=== PATIENT | female | born 1955 | race Caucasian/White ===

== ENCOUNTER 2020-12-23 12:12 | Emergency (ER) | payer SELFPAY ==
[~2020-12-23] VITALS: Ht 180.3 cm; Wt 85.3 kg
[2020-12-23] MEDS ORDERED: ASPIRIN 81 MG CHEW TAB PO ONE (12:45)
[2020-12-23 12:57] LABS: BASOPHILS % 0.4 % (0.0-1.0); EOSINOPHILS % 0.3 % (0.0-6.0); HEMOGLOBIN 13.6 g/dL (12.0-16.0); LYMPHOCYTES # (AUTO) 1.7 (1.0-3.2); LYMPHOCYTES % 21.7 % (18.0-39.1); MEAN CORPUSCULAR HEMOGLOBIN 31.7 pg (28-32); MEAN CORPUSCULAR HGB CONC 33.2 g/dL (31-35); MEAN CORPUSCULAR VOLUME 95.6 fL (81-99); MONOCYTES # (AUTO) 0.6 (0.2-0.8); MONOCYTES % 7.7 % (4.4-11.3); NEUTROPHILS # (AUTO) 5.4 (2.1-6.9); NEUTROPHILS % 69.4 % (38.7-80.0); PLATELET COUNT 203 x10e3/uL (140-360); RED BLOOD COUNT 4.29 x10e6/uL (3.6-5.1); RED CELL DISTRIBUTION WIDTH 13.9 % (11.7-14.4)
[2020-12-23] MEDS ORDERED: ETOMIDATE 2 MG/ML 10 ML INJ IV ONE (12:58)
[2020-12-23] MEDS ORDERED: SUCCINYLCHOLINE CHLORIDE 20 MG/ML 10ML VIAL ONE (12:58)
[2020-12-23 13:05] LABS: INR 1.51; PROTHROMBIN TIME 18.8 seconds (11.9-14.5)
[2020-12-23 13:11] LABS: ALANINE AMINOTRANSFERASE 35 IU/L (0-55); ALBUMIN 4.4 g/dL (3.5-5.0); ALBUMIN/GLOBULIN RATIO 1.2 (0.8-2.0); ALKALINE PHOSPHATASE 61 IU/L (40-150); ANION GAP 19.7 mmol/L (8-16); BLOOD UREA NITROGEN 11 mg/dL (7-26); BUN/CREATININE RATIO 15 (6-25); CALCIUM 9.3 mg/dL (8.4-10.2); CARBON DIOXIDE 22 mmol/L (22-29); CHLORIDE 102 mmol/L (98-107); CREATINE KINASE 63 IU/L (29-168); CREATININE, SERUM 0.71 mg/dL (0.57-1.11); EST GLOMERULAR FILTRATION RATE 83 ML/MIN (60-); GLUCOSE 136 mg/dL (74-118); POTASSIUM 3.7 mmol/L (3.5-5.1); SALICYLATE < 5.0 mg/dL (0-30); SODIUM 140 mmol/L (136-145)
[2020-12-23 13:42] LABS: AMPHETAMINES SCREEN,URINE NEGATIVE (NEGATIVE); BENZODIAZEPINES SCREEN,URINE POSITIVE (NEGATIVE); CLARITY,URINE CLOUDY (CLEAR); COLOR,URINE YELLOW (YELLOW); KETONES,URINE 2+ (NEGATIVE); LEUKOCYTE ESTERASE ,URINE NEGATIVE (NEGATIVE); NITRITE,URINE NEGATIVE (NEGATIVE); PHENCYCLIDINE SCREEN,URINE NEGATIVE (NEGATIVE); PROTEIN,URINE DIPSTICK 2+ (NEGATIVE); URINE UROBILINOGEN 0.2 mg/dL (0.2 - 1)
[2020-12-23] MEDS ORDERED: MANNITOL 20% 500ML 500 ML IV ONE (13:45)
[2020-12-23] MEDS ORDERED: FENTANYL CITRATE/PF 100MCG/2 ML INJ ONE (13:45)
[2020-12-23] MEDS ORDERED: MANNITOL 20% IV ONE (14:00)
[2020-12-23] MEDS ORDERED: FENTANYL 2000MCG/NS 250 250 ML IV SCH (14:00)
[2020-12-23 14:05] LABS: AMORPHOUS SEDIMENT,URINE MODERATE (FEW); EPITHELIAL CELLS,URINE FEW /LPF; MUCUS,URINE FEW (RARE); RBC,URINE 0-5 /HPF (0-5); WBC,URINE (MAN) 0-5 /HPF (0-5)
[2020-12-23] MEDS ORDERED: AMPHETAMINE SAL15 MG PO (14:12)
[2020-12-23] MEDS ORDERED: DIGOXIN250 MCG PO (14:12)
[2020-12-23] MEDS ORDERED: ZESTRIL10 MG PO (14:12)
[2020-12-23] MEDS ORDERED: BUSPIRONE HCL10 MG PO (14:12)
[2020-12-23] MEDS ORDERED: JANTOVEN6 MG PO (14:12)
[2020-12-23] MEDS ORDERED: LEXAPRO20 MG PO (14:12)
[2020-12-23] MEDS ORDERED: BUPROPION XL150 MG PO (14:12)
== END 2020-12-23 14:52 | disposition other institution (70) ==
LOC: ER 12:28
DX: S06.5X0A Traumatic subdural hemorrhage without loss of consciousness, initial encounter (principal); W06.XXXA Fall from bed, initial encounter; Y93.84 Activity, sleeping; Y92.003 Bedroom of unspecified non-institutional (private) residence as the place of occurrence of the external cause; I10 Essential (primary) hypertension; I48.91 Unspecified atrial fibrillation; F31.9 Bipolar disorder, unspecified; Z20.822 Contact with and (suspected) exposure to COVID-19; Z86.16 Personal history of COVID-19
CPT/HCPCS: 31500 ×2; 36415; 51700; 70450; 71045; 72125; 80053; 80307; 80320; 80329 ×2; 81001; 82550; 82553; 82948; 84484; 85025; 85610; 85730; 93005; 94002; 99285; J0330; J3010; U0002